=== PATIENT | female | born 1950 | race Caucasian/White ===

== ENCOUNTER → 2017-03-15 | Outpatient (CLI) | payer MEDICARE, BC ==
[~2017-03-15] MED LIST: GLIP5TAB13 PO; HYDR-3672 PO; LEVO175T2 PO; LISI40TA9 PO; LOSA100T7 PO; METO-429 PO
--- NOTE | 2017-03-15 16:48 | RADRPT ---
PROCEDURE: Left knee radiographs. CLINICAL INDICATION: Left knee pain. TECHNIQUE: Three views. Weight bearing. Frontal, lateral, and patellar view. COMPARISON: No prior studies are available for comparison. FINDINGS: There is no fracture or dislocation. The soft tissues are normal. There are degenerative changes with osteophytes arising from all 3 joint compartment margins. There is medial and patellofemoral joint compartment narrowing, worse than seen previously. There is no lytic or blastic lesion. There is no radiopaque foreign body. IMPRESSION: 1. Moderate degenerative changes of the left knee. 2. No acute abnormality. 3. Worse appearance when compared with 04/28/2016. RPTAT: QQ .Hector Hughes MD, MD Date Time Electronically viewed and signed by .Hector Hughes MD, on 03/15/2017 16:47 .R/
--- NOTE | 2017-03-16 04:26 | HKNOTE ---
DATE OF SERVICE: 03/15/2017 NEW CONDITION: . MAIN COMPLAINT: Pain in the left knee. HISTORY OF MAIN COMPLAINT: The patient is a 66-year-old female who had a right total knee replacement performed by me in 2014. She had been very pleased with the results of the surgery. The pain in her left knee started about 3 weeks ago. There was a sudden onset. No history of injury. Remarkably around about the same time she developed pain in her left shoulder, left scapula, left buttock, and pain radiating down from her left knee to the ankle. The patient complains her pain is aggravated by walking, weightbearing and stair climbing. She thinks there may be some swelling of the knee before, but it seems to have gone down. However, the knee still feels "tight". There is no locking. Occasionally it feels unstable (about once a day). She has had problems with her lower back in the past, which she has had chiropractic treatments. She has never had an MRI scan of the spine. She has no numbness or tingling in the legs. She does get rest pain and night pain. She is taking Aleve, which does not seem to help very much. On a level surface, she can walk about a block, but she has pain with every step that she takes. PAST MEDICAL HISTORY: 1. Hypertension. 2. Diabetes. PAST SURGICAL HISTORY: 1. Right knee replacement. 2. Hysterectomy. 3. Cholecystectomy. ALLERGIES: SULFA DRUGS. MEDICATIONS: 1. Lisinopril. 2. Hydralazine. 3. Metoprolol. 4. Glipizide. 5. Synthroid. 6. Low dose aspirin. FAMILY HISTORY: Noncontributory. SYSTEMS REVIEW: Occasional excess urination, hypertension, chronic cough, history of pneumonia, occasional diarrhea, otherwise negative. HABITS: Patient does not smoke or drink alcoholic beverages. PHYSICAL EXAMINATION: GENERAL: A fit looking and youthful 66-year-old female. GAIT: She walks without a walking aid. She does not have a limp. HIP EXAMINATION: Both hips have full range of motion without pain. LEFT KNEE: Extension is full without pain. Flexion lacks 20 degrees (painful). 2+ effusion. 3+ crepitus in the knee. IMAGING: Plain x-rays of the left knee obtained today at the [facility] (3-views) were reviewed. These show moderate narrowing of the medial joint space and patellofemoral joint. There is no pier-cf-fthw contact anywhere. No osteophytes. No subchondral cysts or subchondral sclerosis. DIAGNOSES: 1. [id number] degenerative osteoarthritis of the left knee. 2. Possible internal derangement of the knee. DISCUSSION: The frequent instability of the knee would suggest an internal derangement. MANAGEMENT: Under sterile conditions, given injection of 2 mL of Kenalog and 6 mL of 2 percent lidocaine into the knee. If she does not feel sufficiently recovered in a week's time from the cortisone injection, she will call my plastic surgery assistant Kaylee who will order an MRI scan of the knee and then she will be seen by me again after. Dictated By: Kike Duval MD /[email or web address] /Document#: [id number]
== END | disposition home or self-care (01) ==
LOC: HKI 15:06
DX: M25.562 Pain in left knee (principal); M17.12 Unilateral primary osteoarthritis, left knee; I10 Essential (primary) hypertension
CPT/HCPCS: 20610; 73562; G0463

== ENCOUNTER → 2017-07-29 | Outpatient (CLI) | END | disposition home or self-care (01) ==

== ENCOUNTER → 2017-09-09 | Outpatient (CLI) | END | disposition home or self-care (01) ==

== ENCOUNTER → 2017-09-16 | Outpatient (CLI) | END | disposition home or self-care (01) ==

== ENCOUNTER → 2017-09-23 | Outpatient (CLI) | END | disposition home or self-care (01) ==